=== PATIENT | male | born 1975 | race African-American/Black ===

== ENCOUNTER 2023-11-29 17:15 | Inpatient (IN) | payer OTHER ==
[2023-11-29 18:35] VITALS: BMI 19.4
[2023-11-29] MEDS ORDERED: guaiFENesin 600 MG TABLET.ER (FP) PO PRN (19:32)
[2023-11-29] MEDS ORDERED: BENZONATATE 200 MG CAPSULE PO PRN (19:32)
[2023-11-29] MEDS ORDERED: IBUPROFEN 600 MG TABLET (FP) PO PRN (19:32)
[2023-11-29] MEDS ORDERED: LOPERAMIDE HCL 2 MG CAPSULE PO PRN (19:32)
[2023-11-29] MEDS ORDERED: BISMUTH SUBSALICYLATE 524 MG/30 ML PO PRN (19:32)
[2023-11-29] MEDS ORDERED: NICOTINE POLACRILEX 2 MG GUM BUC PRN (19:32)
[2023-11-29] MEDS ORDERED: NICOTINE POLACRILEX 2 MG LOZENGE BC PRN (19:32)
[2023-11-29] MEDS ORDERED: MAGNESIUM HYDROX 2400MG/30ML ORAL SUSPENSION 30 ML CUP PO PRN (19:32)
[2023-11-29] MEDS ORDERED: IBUPROFEN 400 MG TABLET (FP) PO PRN (19:32)
[2023-11-29] MEDS ORDERED: BENZOCAINE/MENTHOL (CHLORASEPTIC ) LOZENGE MM PRN (19:32)
[2023-11-29] MEDS ORDERED: MAG HYDROX/AL HYDROX/SIMETH 30 ML UNIT-DOSE CUP PO PRN (19:32)
[2023-11-29] MEDS ORDERED: DICYCLOMINE HCL 10 MG CAPSULE PO PRN (19:32)
[2023-11-29] MEDS ORDERED: METHOCARBAMOL 500 MG TABLET PO PRN (19:32)
[2023-11-29] MEDS ORDERED: hydrOXYzine PAMOATE 25 MG CAPSULE (FP) PO PRN (19:32)
[2023-11-29] MEDS ORDERED: POLYETHYLENE GLYCOL (HEALTHYLAX) 3350 17 GM PACKET PO PRN (19:32)
[2023-11-29] MEDS ORDERED: ONDANSETRON *ODT* 4 MG TABLET SL PRN (19:32)
[2023-11-29] MEDS: THIAMINE 100 MG TABLET PO SCH (22:38)
[2023-11-29] MEDS: MELATONIN 5 MG TABLETS PO SCH (22:38)
[2023-11-30] MEDS ORDERED: LORazepam 1 MG TABLET PO PRN (08:56)
[2023-11-30] MEDS: PRENATAL VITAMINS W/ FOLIC ACID TABLET (FP) PO SCH (10:41)
[2023-11-30] MEDS ORDERED: LORazepam 2 MG TABLET PO SCH (11:00)
[2023-11-30] MEDS: LORazepam 1 MG TABLET PO SCH (11:34)
[2023-11-30 13:52] LABS: HEMATOCRIT 38.4 % (35.4-49); HEMOGLOBIN 12.8 GM/dL (11.7-16.9); MCH 30.3 pg (25.7-33.7); MCHC 33.5 g/dl (32.0-35.9); MEAN CELL VOLUME 90.6 fl (80-96); MEAN PLT VOLUME 7.1 fl (7.5-11.1); PLATELET COUNT 358 10^3/uL (134-434); RBC 4.23 M/mm3 (4.00-5.60); RDW 14.9 % (11.9-15.9); WHITE BLOOD COUNT 5.1 K/mm3 (4.0-10.0)
[2023-11-30 15:18] LABS: CHLORIDE 106 mmol/L (98-107); POTASSIUM 4.2 mmol/L (3.5-5.1); SODIUM 142 mmol/L (136-145)
[2023-11-30 15:22] LABS: ALBUMIN 3.1 g/dl (3.4-5.0); ANION GAP 8 mmol/L (4-13); BLOOD UREA NITROGEN 15.1 mg/dL (7-18); CALCIUM 9.2 mg/dL (8.5-10.1); CO2 28 mmol/L (21-32); GLUCOSE,RANDOM 111 mg/dL (74-106)
[2023-11-30 15:25] LABS: CREATININE 0.9 mg/dL (0.55-1.3); SGOT/AST 15 U/L (15-37); SGPT/ALT 14 U/L (13-61)
[2023-11-30 15:26] LABS: BILIRUBIN,TOTAL 0.3 mg/dL (0.2-1)
[2023-11-30 15:29] LABS: ALK PHOS 98 U/L (45-117)
[2023-12-01] MEDS: ACETAMINOPHEN 325 MG TABLET (FP) PO PRN (17:40)
[2023-12-02] MEDS: LORazepam 1 MG TABLET PO SCH (05:45)
[2023-12-03] MEDS ORDERED: LORazepam 0.5 MG TABLET PO PRN
[2023-12-03] MEDS: LORazepam 0.5 MG TABLET PO SCH (05:40)
[2023-12-04] MEDS: LORazepam 0.5 MG TABLET PO ONE (05:02)
[2023-12-04 09:39] VITALS: BP 123/90; PULSE 76; RESP 16; TEMP 97.7
== END 2023-12-04 09:20 | disposition home or self-care (01) | DRG 897 ==
LOC: YASAS 17:15 → Y6N 19:47
PROVIDERS: ADMIT Allergy & Immunology; ATTEND Surgery
PROC: HZ2ZZZZ Detoxification Services for Substance Abuse Treatment (ICD-10-PCS; principal; 2023-11-29)
DX: F10.230 Alcohol dependence with withdrawal, uncomplicated (principal); F14.20 Cocaine dependence, uncomplicated; F19.282 Other psychoactive substance dependence with psychoactive substance-induced sleep disorder; Z59.00 Homelessness unspecified; F17.210 Nicotine dependence, cigarettes, uncomplicated; F19.24 Other psychoactive substance dependence with psychoactive substance-induced mood disorder; F31.9 Bipolar disorder, unspecified; M25.531 Pain in right wrist; G89.29 Other chronic pain
CPT/HCPCS: 36415; 80053; 80305; 80307; 85027; 86780; 93005; 93010